=== PATIENT | female | born 1975 | race Caucasian/White ===

== ENCOUNTER 2016-11-01 08:07 | Day surgery (SDC) | payer OTHER ==
[~2016-11-01 08:07] MED LIST: FENTANYL 250 MCG/5 ML AMP IV PRN; IV START KIT ONE; LACTATED RINGERS 1,000 ML IV SCH; LIDOCAINE Viscous 2% 15 ML UDCUP PO PRN; MIDAZOLAM HCL 5 MG/5 ML VIAL IV PRN
[2016-11-01] MEDS ORDERED: MIDAZOLAM HCL 5 MG/5 ML VIAL ONE (09:27)
[2016-11-01] MEDS ORDERED: FENTANYL 5 ML ONE (09:28)
[2016-11-01] MEDS ORDERED: LIDOCAINE Viscous 2% 15 ML UDCUP ONE (09:28)
[2016-11-01] MEDS ORDERED: MIDAZOLAM HCL 1 MG/ML 2ML VIAL ONE (09:52)
[2016-11-01 14:30] LABS: HELICOBACTER PYLORII DETECTION NEGATIVE (NEGATIVE)
--- NOTE | 2016-11-03 09:31 | SURGPATH ---
[facility] [address] [place] [id number] Patient Name: BRIAN SANTANA MR#: [id number] : 1975 Gender: F Specimen #: [id number] Collected: 11/01/2016 Received: 11/02/2016 Reported: 11/03/2016 Submitting Phys: LIZ JENKINS Copy To Phys: ALVERTO MALDONADO [facility] Clinical History / Pre-Operative Diagnosis: BLOATING; NAUSEA; SATIETY; ABNORMAL CT SCAN; RULE OUT GIARDIA, CELIAC SPRUE, GASTRITIS Specimen Source / Surgical Procedure Performed: #1-DUODENAL BIOPSY; #2-ANTRAL BIOPSY; #3-CECAL BIOPSY; #4-SIGMOID BIOPSY AT 30 CM Interpretation: 1. DUODENUM, BIOPSY: - NO PATHOLOGIC ABNORMALITY 2. ANTRUM, BIOPSY: - NO PATHOLOGIC ABNORMALITY 3. CECUM, BIOPSY: - NO PATHOLOGIC ABNORMALITY 4. SIGMOID COLON, BIOPSY: - NO PATHOLOGIC ABNORMALITY Electronically Signed Out Salvatore Daley M.D. Gross Description: #1 The specimen is received in a formalin filled container labeled with the patient's name and "duodenal biopsy". Two church biopsies are each 0.5 cm. Totally embedded in cassette #1. #2 The specimen is received in a formalin filled container labeled with the patient's name and "antral biopsy". Two kramer-church biopsies are 0.3 and 0.4 cm. Totally embedded in cassette #2. #3 The specimen is received in a formalin filled container labeled with the patient's name and "cecal biopsy". Two kramer-church biopsies are each 0.3 cm. Totally embedded in cassette #3. #4 The specimen is received in a formalin filled container labeled with the patient's name and "sigmoid biopsy". Two kramer-church biopsies are 0.3 and 0.5 cm. Totally embedded in cassette #4. Génesis Gomez Microscopic Description: Microscopic performed. 1: 33230 2: 10430 3: 77716 4: 87614 R11.11 R19.7
== END 2016-11-01 10:47 | disposition home or self-care (01) ==
LOC: SDC 08:07
PROVIDERS: ATTEND Internal Medicine Gastroenterology
PROC: 0DB98ZX Excision of Duodenum, Via Natural or Artificial Opening Endoscopic, Diagnostic (ICD-10-PCS; principal; 2016-11-01)
PROC: 0DB68ZX Excision of Stomach, Via Natural or Artificial Opening Endoscopic, Diagnostic (ICD-10-PCS; 2016-11-01)
PROC: 0DBH8ZX Excision of Cecum, Via Natural or Artificial Opening Endoscopic, Diagnostic (ICD-10-PCS; 2016-11-01)
PROC: 0DBN8ZX Excision of Sigmoid Colon, Via Natural or Artificial Opening Endoscopic, Diagnostic (ICD-10-PCS; 2016-11-01)
DX: K29.70 Gastritis, unspecified, without bleeding (principal); K29.80 Duodenitis without bleeding; R93.3 Abnormal findings on diagnostic imaging of other parts of digestive tract; Z80.0 Family history of malignant neoplasm of digestive organs; Z88.8 Allergy status to other drugs, medicaments and biological substances; Z88.5 Allergy status to narcotic agent
CPT/HCPCS: 87081; 43239; 45380; J3010; J2250 ×2; A9270; J7120